=== PATIENT | male | born 1995 | race Caucasian/White ===

== ENCOUNTER 2018-02-03 15:01 | Emergency (ER) | payer OTHER ==
[2018-02-03 15:36] VITALS: BMI 22.8
--- NOTE | 2018-02-03 16:21 | ED PDOC ---
Arrival/HPI - General Chief Complaint: Eye Problem Time Seen by Provider: 02/03/18 15:54 Historian: Patient - History of Present Illness Narrative History of Present Illness (Text): 02/03/18 16:05 22-year-old male presents today with left eye burning status post injury. Patient states he accidentally sprayed pepper spray into the left eye. He denies chest pain or shortness of breath. Denies trouble breathing or swallowing. Patient states she washed the eye out at home but he is still having a burning sensation to the left eye. He denies headaches or dizziness. Patient denies any other complaints. Past Medical History - Provider Review Nursing Documentation Reviewed: Yes - Travel History Have you recently traveled outside [place] w/in the past 3 mons?: No - Infectious Disease Hx of Infectious Diseases: None - Integumentary Other/Comment: Epidermalysis Bull[place] - Psychiatric Hx Substance Use: No - Surgical History Other/Comment: circumcision - Anesthesia Hx Anesthesia Reactions: No Hx Malignant Hyperthermia: No Family/Social History - Physician Review Nursing Documentation Reviewed: Yes Family/Social History: Unknown Family HX Smoking Status: Never Smoked Hx Alcohol Use: No Hx Substance Use: No Allergies/Home Meds Allergies/Adverse Reactions: Allergies No Known Allergies Allergy (Verified 02/03/18 15:36) Home Medications: Home Meds Medication Instructions Recorded Confirmed No Known Home Med 02/03/18 02/03/18 Review of Systems - Review of Systems Constitutional: absent: Fatigue, Fevers Eyes: Other (Eye irritation). absent: Vision Changes ENT: absent: Sore Throat, Sinus Congestion Respiratory: absent: SOB, Cough Cardiovascular: absent: Chest Pain, Palpitations Gastrointestinal: absent: Abdominal Pain, Nausea, Vomiting Musculoskeletal: absent: Arthralgias Skin: absent: Pruritis Neurological: absent: Headache, Dizziness Psychiatric: absent: Anxiety, Depression Physical Exam Vital Signs Reviewed: Yes Vital Signs Temp Pulse Resp BP Pulse Ox 02/03/18 15:37 98.8 F 107 H 18 139/76 98 Temperature: Afebrile Blood Pressure: Normal Pulse: Tachycardic Respiratory Rate: Normal Appearance: Positive for: Well-Appearing, Non-Toxic, Comfortable Pain Distress: None Mental Status: Positive for: Alert and Oriented X 3 - Systems Exam Head: Present: Atraumatic Conjunctiva: Present: Injected (left eye minimal conjunctival injection) Ears: Present: Normal, NORMAL TM Mouth: Present: Moist Mucous Membranes Pharnyx: Present: Normal Neck: Present: Normal Range of Motion Respiratory/Chest: Present: Clear to Auscultation, Good Air Exchange. No: Respiratory Distress, Accessory Muscle Use, Wheezes Cardiovascular: Present: Regular Rate and Rhythm Medical Decision Making ED Course and Treatment: 02/03/18 16:38 22-year-old male presents today with left eye irritation after accidentally spraying pepper spray into the left eye Patient's eye was irrigated in the emergency room. Visual acuity within normal limits Patient reassessment: Patient denies any pain in the eye. The conjunctival injection has resolved. Patient denies any vision changes. There is no corneal abrasion. Patient was advised to follow-up with the eye doctor and primary care physician within the next 2 days. Patient was apprised me to return if symptoms worsen or persist or if new concerning symptoms develop Patient verbalizes understanding of discharge instructions and need for immediate followup. all aspects of this case were discussed the attending of record. Impression: Eye irritation follow up with the Eye doctor within the next 2 days. return if symptoms worsen,persist or if new symptoms. follow up with the primary care physician within the next 2 days. Disposition/Present on Arrival - Present on Arrival Any Indicators Present on Arrival: No History of DVT/PE: No History of Uncontrolled Diabetes: No Urinary Catheter: No History of Decub. Ulcer: No History Surgical Site Infection Following: None - Disposition Have Diagnosis and Disposition been Completed?: Yes Diagnosis: Eye irritation Disposition: HOME/ ROUTINE Disposition Time: 16:25 Patient Plan: Discharge Condition: GOOD Additional Instructions: follow up with the Eye doctor within the next 2 days. return if symptoms worsen,persist or if new symptoms. follow up with the primary care physician within the next 2 days. Referrals: [facility] [Outside] - Follow up with primary Rody Bernard MD [Staff Provider] - Follow up with primary Bo Mendez MD [Staff Provider] - Follow up with primary
[2018-02-03 16:56] VITALS: BP 129/62; PULSE 94
[2018-02-03 17:06] VITALS: RESP 18; TEMP 98; O2SAT 99
== END 2018-02-03 17:06 | disposition home or self-care (01) ==
LOC: MERGE 15:01 → ED 15:01
DX: H57.8 Other specified disorders of eye and adnexa (principal)